=== PATIENT | female | born 1995 | race Caucasian/White ===

== ENCOUNTER 2017-12-30 12:30 | Emergency (ER) | payer OTHER ==
[~2017-12-30] VITALS: Ht 160 cm; Wt 61.3 kg
[2017-12-30 13:30] VITALS: BP 120/75
[2017-12-30] MEDS ORDERED: KETOROLAC TROMETH 60MG/2ML VIAL IM ONE (13:30)
== END 2017-12-30 14:00 | disposition home or self-care (01) ==
LOC: ER 12:30
DX: S16.1XXA Strain of muscle, fascia and tendon at neck level, initial encounter (principal); V43.52XA Car driver injured in collision with other type car in traffic accident, initial encounter; Y93.89 Activity, other specified; Y92.410 Unspecified street and highway as the place of occurrence of the external cause; Y99.9 Unspecified external cause status
CPT/HCPCS: 72125; 96372; 99284; J1885

== ENCOUNTER 2018-01-03 09:36 | Emergency (ER) | payer OTHER ==
[~2018-01-03] VITALS: Ht 160 cm; Wt 61.2 kg
[2018-01-03 11:06] VITALS: BP 125/83
[2018-01-03] MEDS ORDERED: KETOROLAC TROMETH 60MG/2ML VIAL IM ONE (11:45)
== END 2018-01-03 11:55 | disposition home or self-care (01) ==
LOC: ER 09:36
DX: M54.9 Dorsalgia, unspecified (principal); R51 Headache

== ENCOUNTER 2018-12-14 13:24 | Emergency (ER) | payer OTHER ==
[~2018-12-14] VITALS: Ht 160 cm; Wt 56.7 kg
[2018-12-14] MEDS ORDERED: HYDROcodone-ACET 10/325MG TAB PO ONE (15:00)
[2018-12-14 15:31] LABS: Basophils # (auto) 0 uL; Basophils % (auto) 0.5 % (0.0-2.0); Eosinophils # (auto) 0.2 uL; Eosinophils % (auto) 2.8 % (0.0-7.0); Hematocrit 45.8 % (36.0-46.0); Hemoglobin 15.7 g/dL (12.2-16.2); Lymphocytes # (auto) 1.8 uL; Lymphocytes % (auto) 24.6 % (10.0-50.0); Mean Corpuscular Hemoglobin 30.1 pg (28.0-32.0); Mean Corpuscular Hgb Conc. 34.2 g/dL (32.0-36.0); Mean Corpuscular Volume 87.8 fL (80.0-100.0); Monocytes # (auto) 0.7 uL; Monocytes % (auto) 10.1 % (0.0-12.0); Neutrophils # (auto) 4.5 uL; Nucleated Red Blood Cells % 0.2 %; Platelet Count (auto) 235 10^3/uL (140-450); Red Blood Cells 5.21 10^6/uL (4.0-5.20); Red Cell Distribution Width 13.4 % (11.8-14.3); White Blood Cell 7.3 10^3/uL (4.4-10.8)
[2018-12-14] MEDS ORDERED: HYDROcodone-ACET 5/325MG TAB PO ONE (16:15)
[2018-12-14 16:17] VITALS: BP 108/71
== END 2018-12-14 16:20 | disposition home or self-care (01) ==
LOC: ER 13:24
DX: G89.29 Other chronic pain (principal); R10.2 Pelvic and perineal pain
CPT/HCPCS: 36415; 72192; 85025

== ENCOUNTER 2019-01-21 10:45 | Emergency (ER) | payer OTHER ==
[~2019-01-21] VITALS: Ht 160 cm; Wt 54.4 kg
[2019-01-21] MEDS ORDERED: cefTRIAXone SOD 1,000 MG VL IM ONE (11:15)
[2019-01-21 11:19] VITALS: BP 130/85
== END 2019-01-21 11:42 | disposition home or self-care (01) ==
LOC: ER 10:45
DX: J02.0 Streptococcal pharyngitis (principal); H92.03 Otalgia, bilateral
CPT/HCPCS: 87880; 96372; 99283; J0696

== ENCOUNTER 2019-05-23 08:07 | Emergency (ER) | payer OTHER ==
[~2019-05-23] VITALS: Ht 160 cm; Wt 59.0 kg
[2019-05-23 10:33] VITALS: BP 107/73
== END 2019-05-23 10:51 | disposition home or self-care (01) ==
LOC: ER 08:07
DX: R07.89 Other chest pain (principal); M94.0 Chondrocostal junction syndrome [Tietze]
CPT/HCPCS: 71046; 81002; 81025; 93005